=== PATIENT | female | born 1960 | race Caucasian/White ===

== ENCOUNTER → 2016-10-31 | Outpatient (CLI) | payer OTHER ==
[~2016-10-31] MED LIST: CETI10TA84 PO; CHOL20009 PO; FLUT0.15; LEVO50TA6 PO; LISI-729 PO; MELO7.5T5 PO; MULT-506 PO
== END | disposition home or self-care (01) ==
LOC: C.PATHSPEC 17:09
PROVIDERS: ATTEND Obstetrics & Gynecology
DX: N95.0 Postmenopausal bleeding (principal); N85.8 Other specified noninflammatory disorders of uterus

== ENCOUNTER → 2017-01-23 | Outpatient (CLI) | payer OTHER ==
--- NOTE | 2017-01-23 15:37 | MAMMOGRAPHY REPORT ---
BILATERAL DIGITAL SCREENING MAMMOGRAM TOMOSYNTHESIS WITH CAD: 01/23/2017 CLINICAL HISTORY: Routine screening. TECHNIQUE: Breast tomosynthesis in addition to standard 2D mammography was performed. Current study was also evaluated with a Computer Aided Detection (CAD) system. COMPARISON: Comparison is made to exams dated: 01/20/2016 mammogram, 01/28/2015 mammogram, 01/18/2015 mando mogram, 12/02/2013 mammogram, 12/01/2012 mammogram, and 11/29/2011 mammogram - [facility]. BREAST COMPOSITION: The tissue of both breasts is heterogeneously dense, which may obscure small mas ses. FINDINGS: No suspicious masses, calcifications, or areas of architectural distortion are noted in ei ther breast. There has been no significant interval change compared to prior exams. IMPRESSION: ACR BI-RADS CATEGORY 1: NEGATIVE There is no mammographic evidence of malignancy. A 1 year screening mammogram is recommended. The pa tient will receive written notification of the results. Approximately 10% of breast cancers are not detected with mammography. A negative mammographic report should not delay biopsy if a clinically suggestive mass is present. Miguelina Patel M.D. ah/:01/23/2017 10:39:19 Distresser: Bernard CARL(Melania)(Dre), [facility] letter sent: Normal 1/2 BI-RADS Code: ACR BI-RADS Category 1: Negative
== END | disposition home or self-care (01) ==
LOC: C.MAMM 10:04
PROVIDERS: ATTEND Obstetrics & Gynecology
DX: Z12.31 Encounter for screening mammogram for malignant neoplasm of breast (principal)

== ENCOUNTER → 2017-02-25 | Outpatient (CLI) | payer OTHER | END | disposition home or self-care (01) | LOC: C.PAPS 08:53 | PROVIDERS: ATTEND Family Medicine | DX: N95.0 Postmenopausal bleeding (principal); N95.2 Postmenopausal atrophic vaginitis ==

== ENCOUNTER → 2017-02-25 | Outpatient (CLI) | payer OTHER ==
[2017-02-25 17:32] LABS: HEMATOCRIT 39.5 % (37-47); MEAN CELL VOLUME 93.8 fL (80-100); MEAN CORPUSCULAR HEMOGLOBIN 30.9 pg (25-34); MEAN CORPUSCULAR HGB CONC 32.9 g/dl (32-36); MEAN PLATELET VOLUME 10.8 fL (7.4-10.4); PLATELET COUNT 234 K/uL (130-400); RED BLOOD COUNT 4.21 M/uL (4.2-5.4); WHITE BLOOD COUNT 5.49 K/uL (4.8-10.8)
[2017-02-25 18:06] LABS: POTASSIUM 3.8 mmol/L (3.5-5.1)
== END | disposition home or self-care (01) ==
LOC: C.LAB1850 16:45
PROVIDERS: ATTEND Obstetrics & Gynecology
DX: N95.0 Postmenopausal bleeding (principal)

== ENCOUNTER → 2017-04-04 | Day surgery (SDC) | payer OTHER ==
[2017-02-05 10:50] VITALS: Ht 167.6 cm; Wt 61.4 kg
--- NOTE | 2017-03-29 16:56 | HISTORY & PHYSICAL EXAMINATION ---
DATE OF ADMISSION: 04/04/2017 CHIEF COMPLAINT: Recurrent postmenopausal bleeding. HISTORY OF PRESENT ILLNESS: I saw a 56-year-old with a history of recurrent postmenopausal bleeding who I originally saw in the spring of 2016 for her first episode. She had an evaluation that included an endometrial biopsy that returned atrophy. There was no evidence of cancer or precancer and no evidence for hormone effect. Last Pap smear was 2013 and was negative. No history of problem with Paps. She had recurrent bleeding in late December and called. We discussed saline ultrasound at that time to better see if there was an intracavitary fibroid as her prior ultrasound suggested that possibility. That study demonstrated more of an intramuscular fibroid. Given the recurrent bleeding, recommend further evaluation. She has had no bleeding since late December. PAST MEDICAL HISTORY: Includes allergies, dermatitis, ganglion cyst, hypertension and hypothyroidism, lipoma, osteoarthrosis, scar of foot and warts. PAST SURGICAL HISTORY: Colonoscopy. FAMILY HISTORY: Father with history of prostate cancer. No family history of breast, colon or ovary cancer. SOCIAL HISTORY: She uses alcohol. She is not a current smoker. No street drug use. MEDICATIONS: Levothyroxine 50 mcg, lisinopril 5 mg, Meloxicam 7.5 mg, lisinopril 5 mg, multivitamin, vitamin D, and fluticasone nasal suspension. ALLERGIES: None to drugs. PHYSICAL EXAMINATION: VITAL SIGNS: Height 5 feet 5-1/4 inch, weight 141 pounds, blood pressure 110/78. GENERAL: She is a pleasant female in no acute distress. HEART: Regular rate and rhythm. LUNGS: Clear to auscultation bilaterally. ABDOMEN: Soft, nontender. PELVIC: Normal external genitalia. Normal BUS. The vagina was pink without lesions. Cervix without lesions. No abnormalities of the uterus or adnexa. NEUROLOGIC: Grossly normal. ASSESSMENT: 1. Postmenopausal bleeding. 2. Leiomyoma. PLAN: I discussed the patient recurrent postmenopausal bleeding. For that reason, we recommend further evaluation at least with D&C hysteroscopy and she agrees. She did have saline ultrasound that did not show much of indent from presumably mostly intramural fibroid. Discussed risks, alternatives and complications to include but not limited to bleeding, infection, anesthesia, perforation of the uterus requiring laparoscopy, injury to bowel, bladder, vessels, nerves, ureters, delayed complications, additional procedures or hospitalizations as needed, deep venous thrombosis or pulmonary embolism. She desires to proceed and a consent form is signed. She is aware of her preop and postop instructions and course.
[~2017-04-04] VITALS: Ht 167.6 cm; Wt 61.4 kg
[~2017-04-04] MED LIST changes: +ATROPINE SULFATE 0.1 MG/ML 5ML SYR IV PRN; +DEXAMETHASONE SOD INJ 4 MG/ML VIAL ONE; +EpHEDrine SULFATE INJ 50 MG/ML AMP IV PRN; +FENTANYL CITRATE INJ 50 MCG/1 ML 2 ML VIAL IV PRN; +FENTANYL CITRATE INJ 50 MCG/1 ML 2 ML VIAL ONE; +IBUPROFEN 600 MG TAB PO PRN; +KETOROLAC TROMETHAMINE 30 MG/ML VIAL IV. PRN; +KETOROLAC TROMETHAMINE 30 MG/ML VIAL ONE; +LACTATED RINGER'S 1000ML 1,000 ML IV SCH; +LIDOCAINE 2% 20 MG/ML 5ML SYR ONE; +LIDOCAINE HCL 2% 2 ML VIAL (20MG/ML) ONE; +MIDAZOLAM HCL 1 MG/ML 2ML VIAL ONE; +ONDANSETRON INJ 2 MG/ML 2 ML VIAL IV PRN; +ONDANSETRON INJ 2 MG/ML 2 ML VIAL ONE; +OXYCODONE/ACETAMINOPHEN 5-325 TAB PO PRN; +PROMETHAZINE HCL INJ 6.25 MG in SODIUM CHLORIDE 0.9% 50ML 50 ML IV PRN; +PROPOFOL IV EMULSION 10 MG/ML 20 ML VIAL IV ONE; +SILVER NITR/POTASSIUM NITRATE 10 APPLICATOR PACK ONE; +SODIUM CHLORIDE 0.9% 1000ML 1,000 ML IV SCH
--- NOTE | 2017-04-04 07:54 | History & Physical Bridge - [place] ---
H&P Re-Evaluation Bridge Note: I have examined the patient, reviewed the History & Physical and in the interval since the performance of the History & Physical I have noted the following changes of clinical significance: No changes noted
--- NOTE | 2017-04-04 08:32 | Discharge Instructions ---
Discharge Instructions Date of Service Apr 04, 2017. Admission Reason for Admission: Post Menopausal Bleeding Discharge Discharge Diagnosis / Problem: after surgery Discharge Goals Goal(s): Routine recovery after surgery Activity Recommendations Activity Limitations: as noted below . Instructions / Follow-Up Instructions / Follow-Up ACTIVITY RECOMMENDATIONS: * Avoid tampons, douching, hot tubs, pools, and intercourse until bleeding has stopped. * May shower as usual. * No strenuous activity for 24-48 hours. After 24-48 hours, you may do anything you feel like doing (driving and sports are okay). SPECIAL CARE INSTRUCTIONS: Special Diet: * Mild nausea may occur in the immediate post-operative period. * Take clear liquids such as tea, cola or bouillon until all nausea has subsided; you may then resume your normal diet. Special Care: * Light bleeding and vaginal spotting can last from a few days to 3-4 weeks. Call your doctor if bleeding becomes heavier than the heaviest part of your period. * Check your temperature twice a day for one week. If it goes above 100.4 degrees Fahrenheit (38.0 Celsius), notify your doctor. * Call your doctor's office for an appointment for 2-4 weeks after your surgery. FOLLOW-UP VISIT: Call your doctor's office for an appointment for 2-4 weeks after your surgery. Our office will call you as I am still looking for an opening--will find something soon. Current Hospital Diet Patient's current hospital diet: Discharge Diet Recommended Diet: Regular Diet Pending Studies Studies pending at discharge: yes List of pending studies: pathology Medical Emergencies . Who to Call and When: Medical Emergencies: If at any time you feel your situation is an emergency, please call 911 immediately. . Non-Emergent Contact Non-Emergency issues call your: Child Care Nurse . . "Provider Documentation" section prepared by Mirna Tolentino. . VTE Core Measure Inpt VTE Proph given/why not?: Treatment not indicated
--- NOTE | 2017-04-04 09:15 | [facility] Operative Report ---
Operative Report Operative Date Apr 04, 2017. Pre-Operative Diagnosis Persistent Postmenopausal bleeding, Fibroid uterus Post-Operative Diagnosis Same as pre-op, submucosal myoma Procedure(s) Performed Dilatation And Curettage, Hysteroscopy, Myomectomy, Myosure Surgeon Dr. Tolentino Aerophysics Engineer Surgeon(s) None Estimated Blood Loss 0 Findings Uterus sounds to approximately 6 cm pre-procedure. Hysteroscopic findings with large right anterior sumucosal fibroid within the cavity. This fibroid appears to have some tethering adhesions to the posterior wall. Right and left tubal ostia able to be seen. Adhesions of the uterus in the anteroposterior direction noted along the left aspect of the uterus. This created the appearance of a false passage directly in the midline fundus. Saline hysteroscopic fluid deficit 600-700 cc. Fluids (cc crystalloids) 500 Specimens A. Endometrial currettings and myoma Drains none Anesthesia Gen. Complication(s) None Disposition Recovery Room / PACU Indications 56-year-old with a history of postmenopausal bleeding with prior evaluation in the office setting. Does have known fibroid uterus. Saline hysterosonography did not show evidence of a submucosal fibroid as much as an intramural fibroid. She had recurrence of her postmenopausal bleeding it was recommended that she have surgical evaluation. Description of Procedure The patient was taken to the operating room and identified. After adequate general anesthesia was obtained she was placed in the dorsal lithotomy position and prepped and draped in the usual sterile fashion. A weighted speculum and anterior retractor were used to visualize the cervix which was grasped on its anterior lip with an Allis clamp. This did not hold well and therefore a single- toothed tenaculum was used. Cervix was sequentially dilated using Hegar dilators to 23. The uterus was retroverted. Diagnostic hysteroscope primed with saline media was gently placed to the cervical os into the uterine cavity with the findings as noted above. A sharp curettage was performed however the myosure hysteroscope was readied. With introduction of the myosure hysteroscope the device was used to shave the myoma. The saline deficit isai rapidly during this process. The uterine cavity was distended well so no perforation was suspected. It was also difficult to determine whether further removal of adhesions was going to create more risk for perforation. The myoma was considered to be adequately sampled and shaved to the contour of the anterior uterus and so at this point the procedure was terminated. All the vaginal instrument were removed. There was a bleeding site at age tenaculum site was cauterized with silver nitrate for excellent hemostasis. Patient was returned to the supine position and awoken from her anesthesia. She was transported to recovery room in stable condition. I attest to the content of the Intraoperative Record and any orders documented therein. Any exceptions are noted below.
[2017-04-04 09:45] VITALS: TEMP 36.2
[2017-04-04 10:14] VITALS: BP 131/80; PULSE 51; O2SAT 100
--- NOTE | 2017-04-04 10:36 | Anesthesia Progress Nt - [facility] ---
Anesthesia Post Op Note Date & Time Apr 04, 2017 at 10:36 Vital Signs Pain Intensity: 0 Vital Signs Past 12 Hours Date Time Temp Pulse Resp B/P (MAP) Pulse Ox O2 Delivery O2 Flow Rate FiO2 04/04/17 10:14 51 20 131/80 (97) 100 Room Air 04/04/17 09:45 36.2 50 18 126/80 (95) 100 Room Air 04/04/17 09:37 47 7 04/04/17 09:37 48 7 100 04/04/17 09:36 114/76 04/04/17 09:36 36.2 100 Room Air 04/04/17 09:33 53 14 100 04/04/17 09:33 52 14 04/04/17 09:31 120/73 04/04/17 09:28 52 12 99 04/04/17 09:28 51 12 04/04/17 09:27 59 22 99 04/04/17 09:27 58 22 04/04/17 09:26 115/75 04/04/17 09:22 47 15 100 04/04/17 09:22 47 15 04/04/17 09:21 113/72 04/04/17 09:18 49 10 04/04/17 09:18 49 10 100 04/04/17 09:16 118/69 04/04/17 09:14 114/74 04/04/17 09:13 36.2 48 12 114/74 100 Mask 6 04/04/17 07:14 36.6 56 16 133/81 (98) 99 Room Air Notes Mental Status: alert / awake / arousable, participated in evaluation Pt Amnestic to Procedure: Yes Nausea / Vomiting: adequately controlled Pain: adequately controlled Airway Patency, RR, SpO2: stable & adequate BP & HR: stable & adequate Hydration State: stable & adequate Anesthetic Complications: no major complications apparent
== END | disposition home or self-care (01) ==
LOC: X.SURG 07:02
PROVIDERS: ATTEND Obstetrics & Gynecology
DX: N95.0 Postmenopausal bleeding (principal); D25.0 Submucous leiomyoma of uterus; I10 Essential (primary) hypertension; E03.9 Hypothyroidism, unspecified; M19.90 Unspecified osteoarthritis, unspecified site; Z80.42 Family history of malignant neoplasm of prostate